=== PATIENT | female | born 1940 | race Caucasian/White ===

== ENCOUNTER 2016-10-01 16:20 | Outpatient (CLI) | payer MEDICARE, OTHER ==
[2016-10-01 17:44] LABS: Mean Platelet Volume 6.4 fL (7.4-10.4); Microcytosis SLIGHT = 6-15 cells (100X) (0-5/hpf); Neutrophil 55 % (42-75); Reactive Lymphocytes 1 % (0-10); Red Blood Cell (RBC) Count 3.91 mill/uL (4.20-5.40); White Blood Cell (WBC) Count 4.3 thou/uL (4.8-10.8)
== END 2016-10-01 16:21 | disposition home or self-care (01) ==
LOC: HPCALD 16:20
PROVIDERS: ATTEND Family Medicine
DX: R06.09 Other forms of dyspnea (principal)
CPT/HCPCS: 36415; 83880; 85025

== ENCOUNTER 2016-10-01 16:28 | Outpatient (CLI) | payer MEDICARE, OTHER ==
--- NOTE | 2016-10-01 18:55 | RAD ---
CHEST TWO VIEWS: Date: 10-01-16 Comparison: 12-05-12 done at [facility]. FINDINGS: The heart size is stable and is about the same as before. There are no congestive findings, pleural effusions, or focal pulmonary infiltrates. Faint calcification is seen in the aortic arch. Modera te degenerative changes are seen in the spine. IMPRESSION: No acute thoracic finding. POS: HOME
== END 2016-10-01 16:29 | disposition home or self-care (01) ==
LOC: BURRAD 16:28
PROVIDERS: ATTEND Family Medicine
DX: R05 Cough (principal); R06.09 Other forms of dyspnea
CPT/HCPCS: 36415; 71020; 83880; 85025

== ENCOUNTER 2016-11-20 10:30 | Outpatient (CLI) | payer MEDICARE, OTHER ==
--- NOTE | 2016-11-21 22:26 | RAD ---
RIGHT FOOT 3 VIEWS: Date: 11/20/16 FINDINGS: No acute fracture was seen. No area of bony destruction was noted. 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 A tiny calcaneal spur was present. IMPRESSION: Longstanding changes, but no acute findings. POS: HOME
== END 2016-11-20 10:31 | disposition home or self-care (01) ==
LOC: BURRAD 10:30
PROVIDERS: ATTEND Family Medicine
DX: M79.671 Pain in right foot (principal)

== ENCOUNTER 2017-01-11 12:39 | Outpatient (CLI) | payer MEDICARE, OTHER ==
--- NOTE | 2017-01-11 20:21 | ULT ---
LEFT LOWER EXTREMITY VENOUS ULTRASOUND 01/11/17 Color duplex doppler ultrasonography of the deep veins of the left lower extremity was performed. No echogenic clot was seen. All deep veins were freely compressible from groin to ankle. There was nor mal doppler response to augmentation maneuvers. Good flow was noted. IMPRESSION: No evidence of DVT. POS: HOME
--- NOTE | 2017-01-11 20:52 | RAD ---
LEFT KNEE: Date: 01/11/17 A total of 5 views were obtained. FINDINGS: There appears to be a joint effusion, but no fracture was appreciated. Medial joint space narrowing is present. The articular surfaces are smooth. IMPRESSION: 1. Joint fluid. 2. Medial joint space narrowing. POS: HOME
== END 2017-01-11 12:40 | disposition home or self-care (01) ==
LOC: BURRAD 12:39
PROVIDERS: ATTEND Family Medicine
DX: S87.82XA Crushing injury of left lower leg, initial encounter (principal)

== ENCOUNTER 2017-03-01 11:07 | Outpatient (CLI) | payer MEDICARE, OTHER ==
--- NOTE | 2017-03-01 17:38 | ULT ---
LEFT LOWER EXTREMITY VENOUS ULTRASOUND 03/01/17 Color duplex doppler ultrasonography of the left lower extremity was performed. Documentary images a nd worksheets were provided and reviewed. All deep veins were freely compressible from groin to ankle. No echogenic clot was seen. There was n ormal doppler response to augmentation maneuvers. Scanning over the hematoma above the knee showed just some mild heterogeneity of the tissue in the r egion. No fluid collections were seen here. IMPRESSION: No evidence of DVT. POS: HOME
== END 2017-03-01 11:08 | disposition home or self-care (01) ==
LOC: BURULT 11:07
PROVIDERS: ATTEND Family Medicine
DX: S80.12XS Contusion of left lower leg, sequela (principal)

== ENCOUNTER 2017-06-04 16:54 | Emergency (ER) | payer MEDICARE, OTHER ==
[2017-06-04] MEDS ORDERED: Adacel (T-DAP) 0.5 ML VIAL ONE (17:05)
[2017-06-04] MEDS ORDERED: Cephalexin 250 MG CAP ONE (17:30)
== END 2017-06-04 18:44 | disposition home or self-care (01) ==
LOC: BURERS 16:54
DX: S51.811A Laceration without foreign body of right forearm, initial encounter (principal); E03.9 Hypothyroidism, unspecified; J45.909 Unspecified asthma, uncomplicated; I10 Essential (primary) hypertension; E78.5 Hyperlipidemia, unspecified; F41.9 Anxiety disorder, unspecified; F32.9 Major depressive disorder, single episode, unspecified; W26.9XXA Contact with unspecified sharp object(s), initial encounter
CPT/HCPCS: 12004; 90471; 90715

== ENCOUNTER 2017-06-29 08:41 | Emergency (ER) | payer MEDICARE, OTHER ==
[2017-06-29] MEDS ORDERED: Ondansetron HCl/PF 4 MG/2 ML Vial ONE (09:18)
[2017-06-29] MEDS ORDERED: Ondansetron ODT 4 MG TAB ONE (09:18)
[2017-06-29 09:38] LABS: Bilirubin Negative (Negative); Blood, Urine Small (Negative); Clarity Cloudy (Clear); Glucose, Urine (Dipstick) Negative (Negative); Leukocyte Large (Negative); Nitrite Negative (Negative); Protein, Urine (Dipstick) Negative (Neg-Trace); Urobilinogen 0.2 mg/dL (0.2-1.0); pH, Urine 5.5 (5.0-9.0)
[2017-06-29 09:40] LABS: Bacteria/HPF 3+ HPF (None Seen); RBC/HPF 0-3 HPF (0-3); Squamous Epithelial 0-3 HPF (0-3)
[2017-06-29] MEDS ORDERED: Sulfameth/Trimethoprim DS 800-160mg TAB ONE (09:46)
== END 2017-06-29 09:52 | disposition home or self-care (01) ==
LOC: BURERS 08:41
DX: N39.0 Urinary tract infection, site not specified (principal); J45.909 Unspecified asthma, uncomplicated; E78.5 Hyperlipidemia, unspecified; I10 Essential (primary) hypertension; E03.9 Hypothyroidism, unspecified; F41.9 Anxiety disorder, unspecified; F32.9 Major depressive disorder, single episode, unspecified
CPT/HCPCS: 81003; 81015; 87077; 87086; 87186; 99283; J2405; Q0162

== ENCOUNTER 2020-02-23 19:45 | Emergency (ER) | payer MEDICARE, OTHER ==
[2020-02-23] MEDS ORDERED: Fentanyl 100 MCG/2 ML VIAL ONE (20:09)
[2020-02-23] MEDS ORDERED: Ondansetron PF 4 MG/2 ML Vial ONE (20:09)
[2020-02-23 20:34] LABS: Bilirubin Negative (Negative); Blood, Urine Negative (Negative); Clarity Cloudy (Clear); Glucose, Urine (Dipstick) Negative (Negative); Leukocyte Trace (Negative); Nitrite Positive (Negative); Protein, Urine (Dipstick) 30 mg/dL (Neg-Trace); Urobilinogen 0.2 mg/dL (Less than 2)
[2020-02-23 20:36] LABS: Bacteria/HPF 4+ HPF (None Seen); RBC/HPF 0-3 HPF (0-3); Squamous Epithelial 0-3 HPF (0-3)
[2020-02-23 20:39] LABS: Hemoglobin 12.3 g/dL (12.0-16.0); Mean Corpuscular HGB CONC 29.1 g/dL (32.0-36.0); Mean Corpuscular Hemoglobin 27.5 pg (27.0-31.0); Mean Corpuscular Volume 94.5 fL (78.0-98.0); Mean Platelet Volume 6.8 fL (7.4-10.4); Platelet Count 253 thou/uL (130-400); RBC Distribution Width 14.3 % (11.5-14.5); Red Blood Cell (RBC) Count 4.46 mill/uL (4.20-5.40); White Blood Cell (WBC) Count 6.3 thou/uL (4.8-10.8)
[2020-02-23 20:48] LABS: ALT (SGPT) 17 U/L (8-55); AST (SGOT) 27 U/L (5-34); Alkaline Phosphatase 98 U/L (40-110); Anion Gap 16 mmol/L (10-20); BUN (Urea Nitrogen) 13 mg/dL (9.8-20.1); Bilirubin, Total 0.6 mg/dL (0.2-1.2); Calc. Creatinine Clearance 0 mL/min (70-130); Calcium 9.3 mg/dL (7.8-10.44); Carbon Dioxide 24 mmol/L (23-31); Chloride 105 mmol/L (98-107); Estimated GFR-MDRD 78; Globulin 3.8 g/dL (2.4-3.5); Glucose 127 mg/dL (83-110); Lipase 57 U/L (8-78); Potassium 4.1 mmol/L (3.5-5.1); Protein, Total 7.8 g/dL (6.0-8.3); Sodium 141 mmol/L (136-145)
[2020-02-23 20:55] LABS: #Lymphocytes 0.9 thou/uL (1.20-3.40); #Monocytes 0.6 thou/uL (0.11-0.59); #Neutrophils 4.8 thou/uL (1.40-6.50); %Basophils 0.7 % (0.0-1.0); %Eosinophils 0.1 % (0.0-10.0); %Lymphocytes 13.9 % (21.0-51.0); %Monocytes 9.1 % (0.0-10.0); %Neutrophils 76.2 % (42.0-75.0); Hypochromia SLIGHT = 6-15 cells (100X) (0-5/hpf); MDiff Complete? YES
--- NOTE | 2020-02-23 23:05 | CT ---
CT ABDOMEN AND PELVIS WITHOUT CONTRAST: 02/23/[address] of the abdomen and pelvis was done without oral or IV contrast. Comparison is made with the prior study dated 10/02/19. Again noted is a very large ventral hernia with large amounts of small bowel herniated into the sac. The small bowel is dilated measuring up to 4 cm in size. There is fecalization o the small bowel. No free air or free fluid was detected. The lung bases are clear. The liver, spleen, pancreas, adrenal g lands, and kidneys showed no acute findings. Some nonobstructing calculi are noted in at least the le ft kidney. There has been a prior cholecystectomy. The aorta shows no dilation. Aside from the obstructed small bowel in the hernia, an ileostomy is noted. The distal loop of remain ing colon shows diverticulosis but no dilation or diverticulitis. CT of the pelvis shows no pelvic masses, inflammatory changes or free fluid. IMPRESSION: Small bowel obstruction with fecalization in the small bowel. Large ventral hernia into which this di lated small bowel herniates. Findings discussed with Dr. Flynn at 2042 on 02/23/20. POS: HOME
== END 2020-02-23 21:42 | disposition short-term general hospital (02) ==
LOC: BURERS 19:45
DX: K43.6 Other and unspecified ventral hernia with obstruction, without gangrene (principal); N39.0 Urinary tract infection, site not specified; E03.9 Hypothyroidism, unspecified; J45.909 Unspecified asthma, uncomplicated; E78.5 Hyperlipidemia, unspecified; E78.00 Pure hypercholesterolemia, unspecified; I10 Essential (primary) hypertension; M19.90 Unspecified osteoarthritis, unspecified site; F41.9 Anxiety disorder, unspecified; F32.9 Major depressive disorder, single episode, unspecified; Z79.899 Other long term (current) drug therapy
CPT/HCPCS: 74176; 80053; 81003; 81015; 83605; 83690; 84484; 85025; 94760; 96365; 96375; J1956; J2405; J3010

== ENCOUNTER 2021-11-06 11:44 | Emergency (ER) | payer MEDICARE, OTHER ==
[2021-11-06] MEDS ORDERED: Iopamidol 370 76% 100 ML VIAL FS ONE (11:45)
[2021-11-06] MEDS ORDERED: Fentanyl 100 MCG/2 ML VIAL ONE ×2 (12:17→13:23)
[2021-11-06] MEDS ORDERED: Ondansetron PF 4 MG/2 ML Vial ONE (12:17)
[2021-11-06 12:24] LABS: ALT (SGPT) 20 U/L (8-55); AST (SGOT) 29 U/L (5-34); Albumin 4.3 g/dL (3.4-4.8); Alkaline Phosphatase 94 U/L (40-110); Anion Gap 14 mmol/L (10-20); BUN (Urea Nitrogen) 15 mg/dL (9.8-20.1); Bilirubin, Total 0.6 mg/dL (0.2-1.2); Calc. Creatinine Clearance 0 mL/min (70-130); Calcium 9.5 mg/dL (7.8-10.44); Carbon Dioxide 25 mmol/L (23-31); Chloride 105 mmol/L (98-107); Globulin 3.6 g/dL (2.4-3.5); Glucose 142 mg/dL (83-110); Lipase 74 U/L (8-78); Magnesium 2.2 mg/dL (1.6-2.6); Potassium 4.3 mmol/L (3.5-5.1); Protein, Total 7.9 g/dL (5.8-8.1); Sodium 140 mmol/L (136-145)
[2021-11-06] MEDS ORDERED: Lidocaine Viscous Sol 2% 15 ml UD Cup ONE (13:15)
[2021-11-06 13:17] LABS: #Lymphocytes 0.5 thou/uL (1.20-3.40); #Monocytes 0.4 thou/uL (0.11-0.59); #Neutrophils 5.1 thou/uL (1.40-6.50); %Basophils 0.5 % (0.0-1.0); %Eosinophils 0.4 % (0.0-10.0); %Lymphocytes 8.7 % (21.0-51.0); %Monocytes 6.4 % (0.0-10.0); Hemoglobin 13.3 g/dL (12.0-16.0); Mean Corpuscular HGB CONC 30.4 g/dL (32.0-36.0); Mean Platelet Volume 6.9 fL (7.4-10.4); Platelet Count 219 thou/uL (130-400); RBC Distribution Width 16.1 % (11.5-14.5); Red Blood Cell (RBC) Count 4.74 mill/uL (4.20-5.40); White Blood Cell (WBC) Count 6.1 thou/uL (4.8-10.8)
[2021-11-06] MEDS ORDERED: Pantoprazole 40 MG VIAL ONE (14:12)
[2021-11-07 03:09] LABS: SARS-CoV-2 PCR by NAA Not Detected (NotDetected)
== END 2021-11-06 15:45 | disposition critical access hospital (66) ==
LOC: BURERS 11:44
DX: K56.609 Unspecified intestinal obstruction, unspecified as to partial versus complete obstruction (principal); I10 Essential (primary) hypertension; E78.5 Hyperlipidemia, unspecified; E78.00 Pure hypercholesterolemia, unspecified; J45.909 Unspecified asthma, uncomplicated; E03.9 Hypothyroidism, unspecified; M81.0 Age-related osteoporosis without current pathological fracture; M19.90 Unspecified osteoarthritis, unspecified site; D64.9 Anemia, unspecified; G56.00 Carpal tunnel syndrome, unspecified upper limb; Z20.822 Contact with and (suspected) exposure to COVID-19
CPT/HCPCS: 74177; 80053; 83605; 83690; 83735; 84484; 85025; 93005; U0003; U0005; 96374; 96375; 96376; C9113; J2405; J3010; Q9967

== ENCOUNTER 2022-01-13 17:16 | Emergency (ER) | payer MEDICARE, OTHER ==
[2022-01-13] MEDS ORDERED: Ketorolac Tromethamine 30 MG/ML VIAL ONE (18:11)
[2022-01-13] MEDS ORDERED: predniSONE 20 MG TAB ONE (18:11)
== END 2022-01-13 18:20 | disposition home or self-care (01) ==
LOC: BURERS 17:16
DX: M19.90 Unspecified osteoarthritis, unspecified site (principal); I10 Essential (primary) hypertension; E03.9 Hypothyroidism, unspecified; E78.5 Hyperlipidemia, unspecified; E78.00 Pure hypercholesterolemia, unspecified; Z79.899 Other long term (current) drug therapy
CPT/HCPCS: 96372; 99283; J1885; J7512

== ENCOUNTER 2022-02-26 10:39 | Emergency (ER) | payer MEDICARE, OTHER ==
[2022-02-26] MEDS ORDERED: Morphine 4 MG/ML VIAL ONE (11:14)
[2022-02-26] MEDS ORDERED: Ondansetron PF 4 MG/2 ML Vial ONE (11:15)
[2022-02-26 11:16] LABS: #Basophils 0.1 thou/uL (0.0-0.2); #Lymphocytes 0.7 thou/uL (1.20-3.40); #Monocytes 0.7 thou/uL (0.11-0.59); #Neutrophils 6.7 thou/uL (1.40-6.50); %Basophils 0.9 % (0.0-1.0); %Eosinophils 0.3 % (0.0-10.0); %Lymphocytes 8.4 % (21.0-51.0); %Monocytes 8.1 % (0.0-10.0); %Neutrophils 82.3 % (42.0-75.0); Hemoglobin 12.4 g/dL (12.0-16.0); Mean Corpuscular HGB CONC 31.7 g/dL (32.0-36.0); Mean Corpuscular Hemoglobin 29.3 pg (27.0-31.0); Mean Corpuscular Volume 92.5 fL (78.0-98.0); Mean Platelet Volume 6.5 fL (7.4-10.4); Platelet Count 207 thou/uL (130-400); RBC Distribution Width 16.3 % (11.5-14.5); Red Blood Cell (RBC) Count 4.23 mill/uL (4.20-5.40); White Blood Cell (WBC) Count 8.1 thou/uL (4.8-10.8)
[2022-02-26 11:49] LABS: ALT (SGPT) 16 U/L (8-55); AST (SGOT) 29 U/L (5-34); Albumin 3.9 g/dL (3.4-4.8); Alkaline Phosphatase 87 U/L (40-110); Anion Gap 17 mmol/L (10-20); BUN (Urea Nitrogen) 24 mg/dL (9.8-20.1); Bilirubin, Total 0.5 mg/dL (0.2-1.2); CK (CPK) 55 U/L (29-168); Calc. Creatinine Clearance 0 mL/min (70-130); Calcium 8.6 mg/dL (7.8-10.44); Carbon Dioxide 23 mmol/L (23-31); Chloride 106 mmol/L (98-107); Globulin 3.3 g/dL (2.4-3.5); Glucose 100 mg/dL (83-110); Potassium 4.9 mmol/L (3.5-5.1); Protein, Total 7.2 g/dL (5.8-8.1); Sodium 141 mmol/L (136-145)
[2022-02-26 12:42] LABS: Bilirubin Negative (Negative); Blood, Urine Negative (Negative); Clarity Slightly Cloudy (Clear); Glucose, Urine (Dipstick) Negative (Negative); Ketone, Urine Negative (Negative); Leukocyte Trace (Negative); Nitrite Positive (Negative); Protein, Urine (Dipstick) Negative (Neg-Trace); Urobilinogen 0.2 mg/dL (Less than 2)
[2022-02-26 12:48] LABS: Bacteria/HPF 3+ HPF (None Seen); RBC/HPF 0-3 HPF (0-3); Squamous Epithelial 0-3 HPF (0-3); WBC/HPF 0-3 HPF (0-3)
== END 2022-02-26 13:18 | disposition home or self-care (01) ==
LOC: BURERS 10:39
DX: N39.0 Urinary tract infection, site not specified (principal); M79.10 Myalgia, unspecified site; I10 Essential (primary) hypertension; E03.9 Hypothyroidism, unspecified; J45.909 Unspecified asthma, uncomplicated; E78.5 Hyperlipidemia, unspecified; E78.00 Pure hypercholesterolemia, unspecified; M81.0 Age-related osteoporosis without current pathological fracture; M19.90 Unspecified osteoarthritis, unspecified site; D64.9 Anemia, unspecified; Z87.19 Personal history of other diseases of the digestive system; Z79.899 Other long term (current) drug therapy
CPT/HCPCS: 80053; 81003; 81015; 82550; 85025; 87077; 87086; 87186; 96374; 96375; J2270; J2405

== ENCOUNTER 2022-04-09 14:56 | Emergency (ER) | payer MEDICARE, OTHER ==
[2022-04-09 16:15] LABS: #Lymphocytes 0.8 thou/uL (1.20-3.40); #Monocytes 0.6 thou/uL (0.11-0.59); #Neutrophils 4.4 thou/uL (1.40-6.50); %Basophils 0.9 % (0.0-1.0); %Eosinophils 0.2 % (0.0-10.0); %Lymphocytes 13.3 % (21.0-51.0); %Monocytes 9.9 % (0.0-10.0); %Neutrophils 75.7 % (42.0-75.0); Hemoglobin 10.8 g/dL (12.0-16.0); Mean Corpuscular HGB CONC 31.7 g/dL (32.0-36.0); Mean Corpuscular Hemoglobin 30.3 pg (27.0-31.0); Mean Corpuscular Volume 95.7 fL (78.0-98.0); Mean Platelet Volume 5.9 fL (7.4-10.4); Platelet Count 192 thou/uL (130-400); RBC Distribution Width 16.3 % (11.5-14.5); Red Blood Cell (RBC) Count 3.57 mill/uL (4.20-5.40); White Blood Cell (WBC) Count 5.8 thou/uL (4.8-10.8)
[2022-04-09 16:31] LABS: ALT (SGPT) 18 U/L (8-55); AST (SGOT) 15 U/L (5-34); Albumin 3.5 g/dL (3.4-4.8); Alkaline Phosphatase 72 U/L (40-110); Anion Gap 11 mmol/L (10-20); BUN (Urea Nitrogen) 17 mg/dL (9.8-20.1); Bilirubin, Total 0.3 mg/dL (0.2-1.2); Calc. Creatinine Clearance 0 mL/min (70-130); Calcium 8.5 mg/dL (7.8-10.44); Carbon Dioxide 25 mmol/L (23-31); Chloride 112 mmol/L (98-107); Estimated GFR 81; Globulin 2.5 g/dL (2.4-3.5); Glucose 76 mg/dL (83-110); Potassium 4.3 mmol/L (3.5-5.1); Sodium 144 mmol/L (136-145)
== END 2022-04-09 17:00 | disposition home or self-care (01) ==
LOC: BURERS 14:56
DX: D64.9 Anemia, unspecified (principal); I10 Essential (primary) hypertension; E78.5 Hyperlipidemia, unspecified; M17.0 Bilateral primary osteoarthritis of knee; M79.673 Pain in unspecified foot
CPT/HCPCS: 36415; 80053; 85025; 93005; 96360

== ENCOUNTER 2024-05-20 16:01 | Emergency (ER) | payer MEDICARE ==
[~2024-05-20 16:01] MED LIST: Iopamidol 370 76% 100 ML VIAL ONE
[2024-05-20 16:24] LABS: Bilirubin Negative (Negative); Blood, Urine Trace (Negative); Clarity Clear (Clear); Glucose, Urine (Dipstick) Negative (Negative); Ketone, Urine Negative (Negative); Leukocyte Negative (Negative); Nitrite Negative (Negative); Protein, Urine (Dipstick) Negative (Neg-Trace); Urobilinogen 0.2 mg/dL (Less than 2)
[2024-05-20 16:30] LABS: Bacteria/HPF 2+ HPF (None Seen); CAUTI Indications for Culture Dysuria,urgency,freq; RBC/HPF None Seen HPF (0-3); Squamous Epithelial 0-3 HPF (0-3); WBC/HPF 0-3 HPF (0-3)
[2024-05-20 16:31] LABS: Urine Culture Reflex No No
[2024-05-20] MEDS ORDERED: traMADol HCl 50 MG TAB ONE (16:31)
[2024-05-20] MEDS ORDERED: Ondansetron ODT 4 MG TAB ONE (17:00)
[2024-05-20 17:01] LABS: #Lymphocytes 0.5 thou/uL (1.20-3.40); #Monocytes 0.4 thou/uL (0.11-0.59); #Neutrophils 5.1 thou/uL (1.40-6.50); %Basophils 0.5 % (0.0-1.0); %Eosinophils 0.5 % (0.0-10.0); %Lymphocytes 8.5 % (21.0-51.0); %Monocytes 7.1 % (0.0-10.0); %Neutrophils 83.4 % (42.0-75.0); Hematocrit 36.5 % (36.0-47.0); Hemoglobin 11.8 g/dL (12.0-16.0); Mean Corpuscular HGB CONC 32.4 g/dL (32.0-36.0); Mean Corpuscular Hemoglobin 30.5 pg (27.0-31.0); Mean Corpuscular Volume 94.2 fl (78.0-98.0); Mean Platelet Volume 6.3 fL (7.4-10.4); Platelet Count 177 10x3/uL (130-400); RBC Distribution Width 13.8 % (11.5-14.5); Red Blood Cell (RBC) Count 3.87 mill/uL (4.20-5.40); White Blood Cell (WBC) Count 6.1 10x3/uL (4.8-10.8)
[2024-05-20 17:19] LABS: ALT (SGPT) 51 U/L (8-55); AST (SGOT) 29 U/L (5-34); Albumin 3.6 g/dL (3.4-4.8); Alkaline Phosphatase 103 U/L (40-110); Anion Gap 16 mmol/L (10-20); BUN (Urea Nitrogen) 18 mg/dL (9.8-20.1); Bilirubin, Total 0.4 mg/dL (0.2-1.2); Calc. Creatinine Clearance 0 mL/min (70-130); Calcium 8.8 mg/dL (7.8-10.44); Carbon Dioxide 24 mmol/L (23-31); Chloride 105 mmol/L (98-107); Estimated GFR 61; Globulin 3.3 g/dL (2.4-3.5); Glucose 111 mg/dL (83-110); Potassium 4.4 mmol/L (3.5-5.1); Protein, Total 6.9 g/dL (5.8-8.1); Sodium 141 mmol/L (136-145)
[2024-05-20] MEDS ORDERED: Ketorolac Tromethamine 30 MG (1 mL) VIAL ONE (17:19)
== END 2024-05-20 19:05 | disposition home or self-care (01) ==
LOC: BURERS 16:01
DX: N20.0 Calculus of kidney (principal); E03.9 Hypothyroidism, unspecified; E78.5 Hyperlipidemia, unspecified; I10 Essential (primary) hypertension; D64.9 Anemia, unspecified; M35.3 Polymyalgia rheumatica; K90.829 Short bowel syndrome, unspecified
CPT/HCPCS: 74177; 80053; 81001; 85025; 96374; J1885; Q0162; Q9967

== ENCOUNTER 2024-09-26 00:55 | Emergency (ER) | payer MEDICARE, OTHER ==
[2024-09-26] MEDS ORDERED: Ondansetron PF 4 MG/2 ML Vial ONE (01:39)
[2024-09-26 01:41] LABS: #Lymphocytes 0.4 thou/uL (1.20-3.40); #Monocytes 0.6 thou/uL (0.11-0.59); #Neutrophils 5.3 thou/uL (1.40-6.50); %Basophils 0.4 % (0.0-1.0); %Eosinophils 0.4 % (0.0-10.0); %Monocytes 9.6 % (0.0-10.0); %Neutrophils 83.6 % (42.0-75.0); Hemoglobin 12.5 g/dL (12.0-16.0); Mean Corpuscular HGB CONC 31.9 g/dL (32.0-36.0); Mean Corpuscular Volume 93.8 fl (78.0-98.0); Mean Platelet Volume 7.1 fL (7.4-10.4); Platelet Count 164 10x3/uL (130-400); RBC Distribution Width 13.5 % (11.5-14.5); Red Blood Cell (RBC) Count 4.16 mill/uL (4.20-5.40); White Blood Cell (WBC) Count 6.4 10x3/uL (4.8-10.8)
[2024-09-26 02:03] LABS: ALT (SGPT) 15 U/L (8-55); AST (SGOT) 18 U/L (5-34); Albumin 3.6 g/dL (3.4-4.8); Alkaline Phosphatase 101 U/L (40-110); Anion Gap 13 mmol/L (10-20); BUN (Urea Nitrogen) 12 mg/dL (9.8-20.1); Bilirubin, Total 0.5 mg/dL (0.2-1.2); Calc. Creatinine Clearance 0 mL/min (70-130); Carbon Dioxide 26 mmol/L (23-31); Chloride 108 mmol/L (98-107); Estimated GFR 72; Globulin 3.3 g/dL (2.4-3.5); Glucose 117 mg/dL (83-110); Lipase 37 U/L (8-78); Potassium 4.4 mmol/L (3.5-5.1); Protein, Total 6.9 g/dL (5.8-8.1); Sodium 143 mmol/L (136-145)
[2024-09-26 02:36] LABS: Bilirubin Negative (Negative); Blood, Urine Negative (Negative); Clarity Clear (Clear); Glucose, Urine (Dipstick) Negative (Negative); Ketone, Urine Negative (Negative); Leukocyte Negative (Negative); Nitrite Negative (Negative); Protein, Urine (Dipstick) Negative (Neg-Trace); Urobilinogen 0.2 mg/dL (Less than 2)
[2024-09-26 02:38] LABS: Bacteria/HPF Rare-Few HPF (None Seen); CAUTI Indications for Culture Dysuria,urgency,freq; RBC/HPF None Seen HPF (0-3); Squamous Epithelial 0-3 HPF (0-3); WBC/HPF None Seen HPF (0-3)
[2024-09-26 02:39] LABS: Urine Culture Reflex No No
== END 2024-09-26 08:55 | disposition short-term general hospital (02) ==
LOC: BURERS 00:55
DX: K56.609 Unspecified intestinal obstruction, unspecified as to partial versus complete obstruction (principal); R11.2 Nausea with vomiting, unspecified; I10 Essential (primary) hypertension
CPT/HCPCS: 74177; 80053; 81001; 83605; 83690; 83735; 85025; 96361; 96374; J2405

== ENCOUNTER 2025-07-06 09:40 | Outpatient (CLI) | payer MEDICARE, OTHER | END 2025-07-06 09:41 | disposition home or self-care (01) | LOC: BURRAD 09:40 | PROVIDERS: ATTEND Family Medicine | DX: M79.641 Pain in right hand (principal); M25.531 Pain in right wrist; M19.041 Primary osteoarthritis, right hand; M25.841 Other specified joint disorders, right hand ==

== ENCOUNTER 2025-08-17 09:29 | Outpatient (CLI) | payer MEDICARE, OTHER ==
[2025-08-17] MEDS ORDERED: Iopamidol 370 76% 100 ML VIAL ONE (12:06)
== END 2025-08-17 09:30 | disposition home or self-care (01) ==
LOC: BURCT 09:29
PROVIDERS: ATTEND Family Medicine
DX: K94.13 Enterostomy malfunction (principal); K43.2 Incisional hernia without obstruction or gangrene; Z87.19 Personal history of other diseases of the digestive system; Z98.890 Other specified postprocedural states; K31.89 Other diseases of stomach and duodenum; R93.3 Abnormal findings on diagnostic imaging of other parts of digestive tract; Z90.49 Acquired absence of other specified parts of digestive tract; N20.0 Calculus of kidney; K57.30 Diverticulosis of large intestine without perforation or abscess without bleeding; E27.8 Other specified disorders of adrenal gland
CPT/HCPCS: 74177; Q9967